=== PATIENT | male | born 1960 | race African-American/Black ===

== ENCOUNTER 2016-06-30 10:24 | Inpatient (IN) | payer OTHER ==
[2016-06-30 10:53] VITALS: BMI 33.5
--- NOTE | 2016-06-30 15:12 | HP ---
CIWA Score - CIWA Score Nausea/Vomitin-No Nausea/No Vomiting Muscle Tremors: 4-Moderate,w/Arms Extend Anxiety: 4-Mod. Anxious/Guarded Agitation: 4-Moderately Restless Paroxysmal Sweats: 1-Minimal Palms Moist Orientation: 0-Oriented Tacttile Disturbances: 3-Moderate Itch/Numb/Burn Auditory Disturbances: 0-None Visual Disturbances: 0-None Headache: 0-None Present CIWA-Ar Total Score: 16 Admission ROS S - HPI Chief Complaint: DETOX TX FOR ALCOHOL DEPENDENCE. Allergies/Adverse Reactions: Allergies Allergy/AdvReac Type Severity Reaction Status Date / Time No Known Allergies Allergy Verified 06/30/16 13:11 History of Present Illness: 55 Y/O AA/MALE WITH A HX OF ALCOHOL AND COCAINE DEPENDENCE SEEKING DETOX TX. Exam Limitations: No Limitations - Ebola screening Have you traveled outside of the country in the last 21 days: No Have you had contact with anyone from an Ebola affected area: No Have you been sick,other than usual withdrawal symptoms: No Do you have a fever: No - Review of Systems Constitutional: Chills, Loss of Appetite, Night Sweats, Changes in sleep EENT: reports: Blurred Vision, Tearing, Nose Congestion, Dental Problems ( MISSING TEETH-UPPER.) Respiratory: reports: No Symptoms reported Cardiac: reports: Lightheadedness, Palpitations GI: reports: Constipated, Poor Fluid Intake : reports: No Symptoms Reported Musculoskeletal: reports: Back Pain, Joint Pain, Muscle Pain Integumentary: reports: No Symptoms Reported Neuro: reports: Tremors, Unsteady Gait, Dizziness Endocrine: reports: No Symptoms Reported Hematology: reports: No Symptoms Reported Psychiatric: reports: Orientated x3, Anxious, Depressed Other Systems: Reviewed and Negative Patient History - Patient Medical History Hx Anemia: No Hx Asthma: No Hx Chronic Obstructive Pulmonary Disease (COPD): No Hx Cancer: No Hx Cardiac Disorders: No Hx Congestive Heart Failure: No Hx Hypertension: No Hx Hypercholesterolemia: No Hx Pacemaker: No HX Cerebrovascular Accident: No Hx Seizures: No Hx Dementia: No Hx Diabetes: No Hx Gastrointestinal Disorders: No Hx Liver Disease: No Hx Genitourinary Disorders: No Hx Sexually Transmitted Disorders: No Hx Renal Disease (ESRD): No Hx Thyroid Disease: No Hx Human Immunodeficiency Virus (HIV): No ( NEGATIVE HX) Hx Hepatitis C: No (Last Tested: 06/2015: NEGATIVE) Hx Depression: Yes (NO MEDS) Hx Suicide Attempt: No Hx Bipolar Disorder: No Hx Schizophrenia: No - Patient Surgical History Past Surgical History: No Hx Neurologic Surgery: No Hx Cataract Extraction: No Hx Cardiac Surgery: No Hx Lung Surgery: No Hx Breast Surgery: No Hx Breast Biopsy: No Hx Abdominal Surgery: No Hx Appendectomy: No Hx Cholecystectomy: No Hx Genitourinary Surgery: No Hx Orthopedic Surgery: No Anesthesia Reaction: No - PPD History Previous Implant?: Yes Documented Results: Negative w/proof Implanted On Prior [facility] Admission?: Yes Date: 10/23/15 Results: 0 MM PPD to be Administered?: No - Reproductive History Patient is a Female of Child Bearing Age (11 -55 yrs old): No (MALE) - Smoking Cessation Smoking history: Current every day smoker Have you smoked in the past 12 months: Yes Aproximately how many cigarettes per day: 5 Cigars Per Day: 0 Hx Chewing Tobacco Use: No Initiated information on smoking cessation: Yes 'Breaking Loose' booklet given: 06/30/16 - Substance & Tx. History Hx Alcohol Use: Yes (VODKA/BEER) Hx Substance Use: Yes (COCAINE) Substance Use Type: Alcohol, Cocaine - Substances Abused Alcohol Route: Oral Frequency: Daily Amount used: 1 PINT VODKA Age of first use: 26 Date of Last Use: 06/30/16 Cocaine Route: Inhalation Frequency: Daily Amount used: $30 Age of first use: 31 Date of Last Use: 06/29/16 Family Disease History - Family Disease History Family History: Denies Admission Physical Exam [facility] - Vital Signs Vital Signs: Vital Signs - 24 hr 06/30/16 10:41 Temperature 96.1 F L Pulse Rate 102 H Respiratory 20 Rate Blood Pressure 122/70 - Physical General Appearance: Yes: Moderate Distress, Alcohol on Breath, Tremorous, Irritable, Anxious HEENTM: Yes: EOMI, Normocephalic, DOROTHY, Pharynx Normal Respiratory: Yes: Chest Non-Tender, Lungs Clear, Normal Breath Sounds Neck: Yes: Supple, Trachea in good position Breast: Yes: Breast Exam Deferred Cardiology: Yes: Regular Rhythm, Regular Rate, S1, S2 Abdominal: Yes: Normal Bowel Sounds, Non Tender, Soft, Protuberent Genitourinary: Yes: Other (N/C) Musculoskeletal: Yes: full range of Motion, Gait Steady Extremities: Yes: Normal Range of Motion, Non-Tender 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 NML intact, Fully Oriented, Alert, Motor Strength 5/5 Integumentary: Yes: Dry, Warm Lymphatic: Yes: Within Normal Limits - Diagnostic (1) Alcohol dependence with uncomplicated withdrawal Current Visit: Yes Status: Acute (2) Cocaine dependence Current Visit: Yes Status: Acute Qualifiers: Substance use status: uncomplicated Qualified Code(s): F14.20 - Cocaine dependence, uncomplicated (3) Nicotine dependence Current Visit: Yes Status: Acute Qualifiers: Nicotine product type: cigarettes Substance use status: in withdrawal Qualified Code(s): F17.213 - Nicotine dependence, cigarettes, with withdrawal Cleared for Admission [facility] - Detox or Rehab [facility] Level of Care: Medically Managed Detox Regimen/Protocol: Librium [facility] Breath Alcohol Content Breath Alcohol Content: 0.021 Urine Drug Screen - Results Drug Screen Negative: No Urine Drug Screen Results: RUSSELL-Cocaine, BZO-Benzodiazepines
[2016-06-30] MEDS ORDERED: MAGNESIUM CITRATE 300 ML BOTTLE PO PRN (15:17)
[2016-06-30] MEDS ORDERED: IBUPROFEN 400 MG TABLET (FP) PO PRN (15:17)
[2016-06-30] MEDS ORDERED: guaiFENesin/D-METHORPHAN HB 10 ML UNIT-DOSE CUPS PO PRN (15:17)
[2016-06-30] MEDS ORDERED: ACETAMINOPHEN 325 MG TABLET (FP) PO PRN (15:17)
[2016-06-30] MEDS ORDERED: MAG HYDROX/AL HYDROX/SIMETH 30 ML UNIT-DOSE CUP PO PRN (15:17)
[2016-06-30] MEDS ORDERED: NICOTINE POLACRILEX 2 MG GUM BUC PRN (15:17)
[2016-06-30] MEDS ORDERED: MAGNESIUM HYDROX 2400MG/30ML ORAL SUSPENSION 30 ML CUP PO PRN (15:17)
[2016-06-30] MEDS ORDERED: hydrOXYzine PAMOATE 25 MG CAPSULE (FP) PO PRN (15:17)
[2016-06-30] MEDS ORDERED: P-EPHED 60MG/TRIPROLIDI 2.5MG TABLET PO PRN (15:17)
[2016-06-30] MEDS ORDERED: diphenhydrAMINE HCL 50 MG CAPSULE PO PRN (15:17)
[2016-06-30] MEDS ORDERED: MENTHOL/PHENOL 1 EACH UD MM PRN (15:17)
[2016-06-30] MEDS ORDERED: chlordiazePOXIDE HCL 25 MG CAPSULE PO PRN (15:17)
[2016-06-30] MEDS ORDERED: LOPERAMIDE HCL 2 MG CAPSULE PO PRN (15:17)
[2016-06-30] MEDS ORDERED: chlordiazePOXIDE HCL 25 MG CAPSULE PO ONE (15:24)
[2016-06-30] MEDS: chlordiazePOXIDE HCL 25 MG CAPSULE PO SCH ×2 (17:19→22:11)
[2016-06-30 19:40] LABS: URINE APPEARANCE CLEAR; URINE BILIRUBIN NEGATIVE (NEGATIVE); URINE BLOOD NEGATIVE (NEGATIVE); URINE COLOR YELLOW; URINE GLUCOSE (UA) NEGATIVE (NEGATIVE); URINE KETONE NEGATIVE (NEGATIVE); URINE LEUK ESTERASE NEGATIVE (NEGATIVE); URINE NITRITE NEGATIVE (NEGATIVE); URINE UROBILINOGEN NEGATIVE E.U./dl (0.2-1.0)
[2016-06-30 19:41] LABS: URINE PROTEIN 1+ (NEGATIVE)
[2016-06-30 19:44] LABS: CALCIUM OXALATE CRYSTALS FEW /hpf (NONE SEEN); URINE HYALINE CAST 5 /lpf; URINE MUCUS RARE; URINE RBC 17 /hpf (0-3); URINE SPERM RARE; URINE WBC 3 /hpf (3-5)
[2016-06-30] MEDS: NICOTINE 14 MG/24 HOURS TOPICAL PATCH TD SCH (20:17)
[2016-06-30] MEDS: THIAMINE HCL 100 MG TABLET (FP) PO SCH (22:11)
[2016-07-01] MEDS: chlordiazePOXIDE HCL 25 MG CAPSULE PO SCH ×4 (05:50→22:39)
[2016-07-01 09:52] LABS: MCH 27.6 pg (25.7-33.7); MCHC 32.9 g/dl (32.0-35.9); MEAN CELL VOLUME 84.1 fl (80-96); MEAN PLT VOLUME 8.8 fl (7.5-11.1); PLATELET COUNT 266 K/MM3 (134-434); RDW 14.2 % (11.9-15.9); WHITE BLOOD COUNT 8.3 K/mm3 (4.0-10.0)
[2016-07-01 09:58] LABS: ALBUMIN 4.1 g/dl (3.4-5.0); BILIRUBIN,TOTAL 0.3 mg/dL (0.2-1.0); CALCIUM 8.4 mg/dL (8.5-10.1); CREATININE 1.7 mg/dL (0.7-1.3); TOT PROT 6.9 g/dl (6.4-8.2)
--- NOTE | 2016-07-01 10:08 | EKG ---
Test Reason : Blood Pressure : / mmHG Vent. Rate : 086 BPM Atrial Rate : 086 BPM P-R Int : 148 ms QRS Dur : 076 ms QT Int : 362 ms P-R-T Axes : 074 043 078 degrees QTc Int : 433 ms NORMAL SINUS RHYTHM POSSIBLE LEFT ATRIAL ENLARGEMENT BORDERLINE ECG NO PREVIOUS ECGS AVAILABLE Confirmed by IVETTE PIRES MD ([id number]) on 07/01/2016 10:08:31 AM Referred By: Confirmed By:IVETTE PIRES MD
[2016-07-01] MEDS: NICOTINE 14 MG/24 HOURS TOPICAL PATCH TD SCH (11:01)
[2016-07-01] MEDS: PRENATAL VITAMINS W/ FOLIC ACID TABLET (FP) PO SCH (11:02)
--- NOTE | 2016-07-01 12:06 | PN ---
[facility] CIWA - CIWA Score Nausea/Vomitin Muscle Tremors: 2 Anxiety: 2 Agitation: 2 Paroxysmal Sweats: 3 Orientation: 0-Oriented Tacttile Disturbances: 2-Mild Itch/Numbness/Burn Auditory Disturbances: 0-None Visual Disturbances: 0-None Headache: 0-None Present CIWA-Ar Total Score: 13 S Progress Note (SOAP) Subjective: feeling tired , sweats, cough , fever Objective: 07/01/16 12:03 Vital Signs Temperature 100.9 F H 07/01/16 09:51 Pulse Rate 103 H 07/01/16 09:51 Respiratory Rate 20 07/01/16 09:51 Blood Pressure 128/64 07/01/16 09:51 O2 Sat by Pulse Oximetry (%) Laboratory Tests 06/30/16 07/01/16 07/01/16 15:00 06:00 06:00 WBC 8.3 RBC 4.55 Hgb 12.6 Hct 38.3 MCV 84.1 MCHC 32.9 RDW 14.2 Plt Count 266 MPV 8.8 Sodium 139 Potassium 4.0 Chloride 105 Carbon Dioxide 24 Anion Gap 10 BUN 15 Creatinine 1.7 H D Creat Clearance w eGFR 42.21 Random Glucose 68 L Calcium 8.4 L Total Bilirubin 0.3 D AST 35 D ALT 35 D Alkaline Phosphatase 63 D Total Protein 6.9 Albumin 4.1 D Urine Color Yellow Urine Appearance Clear Urine pH 5.0 Ur Specific [place] 1.016 Urine Protein 1+ H Urine Glucose (UA) Negative Urine Ketones Negative Urine Blood Negative Urine Nitrite Negative Urine Bilirubin Negative Urine Urobilinogen Negative Ur Leukocyte Esterase Negative Urine RBC 17 Urine WBC 3 Ur Epithelial Cells Rare Calcium Oxalate Crystal Few Hyaline Casts 5 Urine Mucus Rare RPR Titer 07/01/16 06:00 WBC RBC Hgb Hct MCV MCHC RDW Plt Count MPV Sodium Potassium Chloride Carbon Dioxide Anion Gap BUN Creatinine Creat Clearance w eGFR Random Glucose Calcium Total Bilirubin AST ALT Alkaline Phosphatase Total Protein Albumin Urine Color Urine Appearance Urine pH Ur Specific [place] Urine Protein Urine Glucose (UA) Urine Ketones Urine Blood Urine Nitrite Urine Bilirubin Urine Urobilinogen Ur Leukocyte Esterase Urine RBC Urine WBC Ur Epithelial Cells Calcium Oxalate Crystal Hyaline Casts Urine Mucus RPR Titer Nonreactive pt aox3 in nad lungs decreased breath sounds bases [place] poor ispiratory efforts cxr neg pulse ox ra 97% on RA 07/01/16 13:20 Assessment: 07/01/16 12:05 withdrawal sx's cough, fever bronchitis renal failure 07/01/16 12:06 07/01/16 13:18 Plan: cont. detox cxr -done robitussin prn zpack monitor temps tinactin bid
[2016-07-01] MEDS ORDERED: AZITHROMYCIN 250 MG TABLET (FP) PO ONE (14:28)
--- NOTE | 2016-07-01 15:05 | CONSULT ---
[facility] Psychiatric Consult - Data Date of interview: 07/01/16 Admission source: [facility] Identifying data: Readmission to [facility] for this 55 y/o AA male seeking detox treatment for alcohol and cocaine dependence.Patient is single,a father of two,homeless,unemployed and deprived of any source of income. Substance Abuse History: - Smoking Cessation. Smoking history: Current every day smoker. Have you smoked in the past 12 months: Yes. Aproximately how many cigarettes per day: 5. Cigars Per Day: 0. Hx Chewing Tobacco Use: No. Initiated information on smoking cessation: Yes. 'Breaking Loose' booklet given : 06/30/16. - Substance & Tx. History. Hx Alcohol Use: Yes (VODKA/BEER). Hx Substance Use: Yes (COCAINE). Substance Use Type: Alcohol, Cocaine. - Substances Abused. Alcohol. Route: Oral. Frequency: Daily. Amount used: 1 PINT VODKA. Age of first use: 26. Date of Last Use: 06/30/16. Confirmed by patient. Cocaine. Route: Inhalation. Frequency: Daily. Amount used: $30. Age of first use: 31. Date of Last Use: 06/29/16. Confirmed by patient. Medical History: Patient reports good general health. Psychiatric History: No reported history of psychiatric hospitalizations.Diagnosed with MDD.Prescribed zoloft 50 mg po daily (confirmed by pharmacy claims of 06/19/16).Mr Torres indicates that he has no contact with any OPD care setting in the community/mental health provider.He endorses chronic non-adherence to medications.Mr Torres admits to past episodes of suicidal ideation without progression to attempts. Physical/Sexual Abuse/Trauma History: Patient denies. Additional Comment: Urine Drug Screen Results: RUSSELL-Cocaine, BZO- Benzodiazepines.Noted. Mental Status Exam - Mental Status Exam Alert and Oriented to: Time, Place, Person Cognitive Function: Grossly Intact Patient Appearance: Well Groomed Mood: Irritable Affect: Mood Congruent Patient Behavior: Sedated (moderately), Fatigued, Cooperative (marginally) Speech Pattern: Delayed, Slurred Voice Loudness: Moderately Soft/Quiet Thought Process: Goal Oriented Thought Disorder: Not Present Hallucinations: Denies Suicidal Ideation: Denies Homicidal Ideation: Denies Insight/Judgement: Poor Sleep: Fair Appetite: Good Muscle strength/Tone: Normal Gait/Station: Normal Psychiatric Findings - Problem List ([place] 1, 2,3) (1) Alcohol dependence with uncomplicated withdrawal Current Visit: Yes Status: Acute (2) Cocaine dependence Current Visit: Yes Status: Acute Qualifiers: Substance use status: uncomplicated Qualified Code(s): F14.20 - Cocaine dependence, uncomplicated (3) Nicotine dependence Current Visit: Yes Status: Acute Qualifiers: Nicotine product type: cigarettes Substance use status: in withdrawal Qualified Code(s): F17.213 - Nicotine dependence, cigarettes, with withdrawal (4) Substance induced mood disorder Current Visit: Yes Status: Acute - Initial Treatment Plan Initial Treatment Plan: Psychoeducation.Detoxification.Zoloft 50 mg po daily.Side effects/benefits explained to patient.He agrres with this plan of care.Observation.
[2016-07-01] MEDS: TOLNAFTATE 1% CREAM 15 GM TUBE TP SCH (22:38)
[2016-07-01] MEDS: THIAMINE HCL 100 MG TABLET (FP) PO SCH (22:39)
[2016-07-02] MEDS: chlordiazePOXIDE HCL 25 MG CAPSULE PO SCH ×2 (06:10→11:34)
[2016-07-02 10:16] LABS: CALCIUM 8.2 mg/dL (8.5-10.1); CREATININE 1.3 mg/dL (0.7-1.3)
--- NOTE | 2016-07-02 11:03 | PN ---
S CIWA - CIWA Score Nausea/Vomitin Muscle Tremors: 3 Anxiety: 3 Agitation: 3 Paroxysmal Sweats: 1-Minimal Palms Moist Orientation: 0-Oriented Tacttile Disturbances: 1-Very Mild Itch/Numbness Auditory Disturbances: 1-Very Mild Visual Disturbances: 1-Very Mild Sensitivity Headache: 2-Mild CIWA-Ar Total Score: 18 S Progress Note (SOAP) Subjective: ALERT,IRRITABLE,ANXIOUS,INTERRUPTED SLEEP,TREMOR,PAIN IN BOTH FEET WITH SWELLING Objective: 07/02/16 11:03 Vital Signs Temperature 98.8 F 07/02/16 10:27 Pulse Rate 92 H 07/02/16 10:27 Respiratory Rate 16 07/02/16 10:27 Blood Pressure 126/85 07/02/16 10:27 O2 Sat by Pulse Oximetry (%) 07/02/16 11:04 EKG NSR NO CHEST PAIN,NO SOB,NO DIZZINESS Laboratory Last Values WBC 8.3 K/mm3 (4.0-10.0) 07/01/16 06:00 RBC 4.55 M/mm3 (4.00-5.60) 07/01/16 06:00 Hgb 12.6 GM/dL (11.7-16.9) 07/01/16 06:00 Hct 38.3 % (35.4-49) 07/01/16 06:00 MCV 84.1 fl (80-96) 07/01/16 06:00 MCHC 32.9 g/dl (32.0-35.9) 07/01/16 06:00 RDW 14.2 % (11.9-15.9) 07/01/16 06:00 Plt Count 266 K/MM3 (134-434) 07/01/16 06:00 MPV 8.8 fl (7.5-11.1) 07/01/16 06:00 Sodium 142 mmol/L (136-145) 07/02/16 07:00 Potassium 4.1 mmol/L (3.5-5.1) 07/02/16 07:00 Chloride 108 mmol/L (98-107) H 07/02/16 07:00 Carbon Dioxide 25 mmol/L (21-32) 07/02/16 07:00 Anion Gap 9 (8-16) 07/02/16 07:00 BUN 13 mg/dL (7-18) 07/02/16 07:00 Creatinine 1.3 mg/dL (0.7-1.3) D 07/02/16 07:00 Creat Clearance w eGFR 42.21 (>60) 07/01/16 06:00 Random Glucose 77 mg/dL (74-106) 07/02/16 07:00 Calcium 8.2 mg/dL (8.5-10.1) L 07/02/16 07:00 Total Bilirubin 0.3 mg/dL (0.2-1.0) D 07/01/16 06:00 AST 35 U/L (15-37) D 07/01/16 06:00 ALT 35 U/L (12-78) D 07/01/16 06:00 Alkaline Phosphatase 63 U/L (45-117) D 07/01/16 06:00 Total Protein 6.9 g/dl (6.4-8.2) 07/01/16 06:00 Albumin 4.1 g/dl (3.4-5.0) D 07/01/16 06:00 Urine Color Yellow 06/30/16 15:00 Urine Appearance Clear 06/30/16 15:00 Urine pH 5.0 (5.0-8.0) 06/30/16 15:00 Ur Specific [place] 1.016 (1.001-1.035) 06/30/16 15:00 Urine Protein 1+ (NEGATIVE) H 06/30/16 15:00 Urine Glucose (UA) Negative (NEGATIVE) 06/30/16 15:00 Urine Ketones Negative (NEGATIVE) 06/30/16 15:00 Urine Blood Negative (NEGATIVE) 06/30/16 15:00 Urine Nitrite Negative (NEGATIVE) 06/30/16 15:00 Urine Bilirubin Negative (NEGATIVE) 06/30/16 15:00 Urine Urobilinogen Negative E.U./dl (0.2-1.0) 06/30/16 15:00 Ur Leukocyte Esterase Negative (NEGATIVE) 06/30/16 15:00 Urine RBC 17 /hpf (0-3) 06/30/16 15:00 Urine WBC 3 /hpf (3-5) 06/30/16 15:00 Ur Epithelial Cells Rare /hpf (FEW) 06/30/16 15:00 Calcium Oxalate Crystal Few /hpf (NONE SEEN) 06/30/16 15:00 Hyaline Casts 5 /lpf 06/30/16 15:00 Urine Mucus Rare 06/30/16 15:00 RPR Titer Nonreactive (NONREACTIVE) 07/01/16 06:00 07/02/16 11:06 Assessment: 07/02/16 11:06 WITHDRAWAL SYMPTOM 07/02/16 11:06 Plan: CONTINUE DETOX,LASIX 40 MGS PO DAILY FOR 3 DAYS,XRAY BOTH FEET R/O ARTHRITIS
[2016-07-02] MEDS: PRENATAL VITAMINS W/ FOLIC ACID TABLET (FP) PO SCH (11:18)
[2016-07-02] MEDS: SERTRALINE HCL 50 MG TABLET (FP) PO SCH (11:18)
[2016-07-02] MEDS: AZITHROMYCIN 250 MG TABLET (FP) PO SCH (11:18)
[2016-07-02] MEDS: TOLNAFTATE 1% CREAM 15 GM TUBE TP SCH ×2 (11:18→23:00)
[2016-07-02] MEDS: FUROSEMIDE 40 MG TABLET (FP) PO SCH (11:19)
[2016-07-02] MEDS: NICOTINE 14 MG/24 HOURS TOPICAL PATCH TD SCH (11:20)
[2016-07-02] MEDS: chlordiazePOXIDE 5 MG CAPSULE PO SCH ×2 (17:40→23:00)
[2016-07-02] MEDS: THIAMINE HCL 100 MG TABLET (FP) PO SCH (23:00)
[2016-07-03] MEDS: chlordiazePOXIDE 5 MG CAPSULE PO SCH ×2 (06:13→10:54)
[2016-07-03] MEDS: SERTRALINE HCL 50 MG TABLET (FP) PO SCH (10:54)
[2016-07-03] MEDS: FUROSEMIDE 40 MG TABLET (FP) PO SCH (10:54)
[2016-07-03] MEDS: NICOTINE 14 MG/24 HOURS TOPICAL PATCH TD SCH (10:54)
[2016-07-03] MEDS: PRENATAL VITAMINS W/ FOLIC ACID TABLET (FP) PO SCH (10:54)
[2016-07-03] MEDS: AZITHROMYCIN 250 MG TABLET (FP) PO SCH (10:54)
[2016-07-03] MEDS: TOLNAFTATE 1% CREAM 15 GM TUBE TP SCH ×2 (10:54→23:48)
--- NOTE | 2016-07-03 11:13 | PN ---
S Progress Note (SOAP) Subjective: ALERT,IRRITABLE,INTERRUPTED SLEEP,SWELLING AND PAIN IN BOTH FEET IS LESS Objective: 07/03/16 11:11 Vital Signs Temperature 98.2 F 07/03/16 09:53 Pulse Rate 85 07/03/16 09:53 Respiratory Rate 20 07/03/16 09:53 Blood Pressure 126/78 07/03/16 09:53 O2 Sat by Pulse Oximetry (%) Assessment: 07/03/16 11:11 WITHDRAWAL SYMPTOM XRAY BOTH FEET RESULT NOTED Plan: WITHDRAWAL SYMPTOM,EDEMA BOTH FEET IS LESS,DISCHARGE IN AM
[2016-07-03] MEDS: chlordiazePOXIDE HCL 10 MG CAPSULE PO SCH ×2 (17:36→23:48)
[2016-07-03] MEDS: THIAMINE HCL 100 MG TABLET (FP) PO SCH (23:48)
[2016-07-04 06:51] VITALS: BP 122/79; PULSE 82; TEMP 97.7
[2016-07-04] MEDS: chlordiazePOXIDE HCL 10 MG CAPSULE PO SCH (07:00)
--- NOTE | 2016-07-04 15:12 | DS ---
[facility] Detox Discharge Summary Admission Date: 06/30/16 Discharge Date: 07/04/16 - History Present History: Alcohol Dependence, Cocaine Dependence Additional Comments: ADVISED PATIENT TO FOLLOW-UP WITH [facility] / REHAB MEDICAL PROVIDER AFTER DISCHARGE FROM DETOX FOR GENERAL MEDICAL ASSESSMENT AND FOR ABNORMAL ADMISSION LAB VALUES. Pertinent Past History: Depression. - Physical Exam Results Vital Signs: Vital Signs Temperature 97.7 F 07/04/16 06:00 Pulse Rate 82 07/04/16 06:00 Respiratory Rate 18 07/04/16 06:00 Blood Pressure 122/79 07/04/16 06:00 O2 Sat by Pulse Oximetry (%) Pertinent Admission Physical Exam Findings: WITHDRAWAL SYMPTOMS. Vital Signs Temperature 97.7 F 07/04/16 06:00 Pulse Rate 82 07/04/16 06:00 Respiratory Rate 18 07/04/16 06:00 Blood Pressure 122/79 07/04/16 06:00 O2 Sat by Pulse Oximetry (%) Laboratory Last Values WBC 8.3 K/mm3 (4.0-10.0) 07/01/16 06:00 RBC 4.55 M/mm3 (4.00-5.60) 07/01/16 06:00 Hgb 12.6 GM/dL (11.7-16.9) 07/01/16 06:00 Hct 38.3 % (35.4-49) 07/01/16 06:00 MCV 84.1 fl (80-96) 07/01/16 06:00 MCHC 32.9 g/dl (32.0-35.9) 07/01/16 06:00 RDW 14.2 % (11.9-15.9) 07/01/16 06:00 Plt Count 266 K/MM3 (134-434) 07/01/16 06:00 MPV 8.8 fl (7.5-11.1) 07/01/16 06:00 Sodium 142 mmol/L (136-145) 07/02/16 07:00 Potassium 4.1 mmol/L (3.5-5.1) 07/02/16 07:00 Chloride 108 mmol/L (98-107) H 07/02/16 07:00 Carbon Dioxide 25 mmol/L (21-32) 07/02/16 07:00 Anion Gap 9 (8-16) 07/02/16 07:00 BUN 13 mg/dL (7-18) 07/02/16 07:00 Creatinine 1.3 mg/dL (0.7-1.3) D 07/02/16 07:00 Creat Clearance w eGFR 42.21 (>60) 07/01/16 06:00 Random Glucose 77 mg/dL (74-106) 07/02/16 07:00 Calcium 8.2 mg/dL (8.5-10.1) L 07/02/16 07:00 Total Bilirubin 0.3 mg/dL (0.2-1.0) D 07/01/16 06:00 AST 35 U/L (15-37) D 07/01/16 06:00 ALT 35 U/L (12-78) D 07/01/16 06:00 Alkaline Phosphatase 63 U/L (45-117) D 07/01/16 06:00 Total Protein 6.9 g/dl (6.4-8.2) 07/01/16 06:00 Albumin 4.1 g/dl (3.4-5.0) D 07/01/16 06:00 Urine Color Yellow 06/30/16 15:00 Urine Appearance Clear 06/30/16 15:00 Urine pH 5.0 (5.0-8.0) 06/30/16 15:00 Ur Specific [place] 1.016 (1.001-1.035) 06/30/16 15:00 Urine Protein 1+ (NEGATIVE) H 06/30/16 15:00 Urine Glucose (UA) Negative (NEGATIVE) 06/30/16 15:00 Urine Ketones Negative (NEGATIVE) 06/30/16 15:00 Urine Blood Negative (NEGATIVE) 06/30/16 15:00 Urine Nitrite Negative (NEGATIVE) 06/30/16 15:00 Urine Bilirubin Negative (NEGATIVE) 06/30/16 15:00 Urine Urobilinogen Negative E.U./dl (0.2-1.0) 06/30/16 15:00 Ur Leukocyte Esterase Negative (NEGATIVE) 06/30/16 15:00 Urine RBC 17 /hpf (0-3) 06/30/16 15:00 Urine WBC 3 /hpf (3-5) 06/30/16 15:00 Ur Epithelial Cells Rare /hpf (FEW) 06/30/16 15:00 Calcium Oxalate Crystal Few /hpf (NONE SEEN) 06/30/16 15:00 Hyaline Casts 5 /lpf 06/30/16 15:00 Urine Mucus Rare 06/30/16 15:00 RPR Titer Nonreactive (NONREACTIVE) 07/01/16 06:00 LABS NOTED. - Treatment Hospital Course: Detox Protocol Followed, Detoxed Safely, Responded well, Discharged Condition Good Patient has Accepted a Rehab Referral to: NO - OUTPATIENT 12-STEP AA / NA PROGRAMS RECOMMENDED TO PATIENT. - Medication Discharge Medications: Ambulatory Orders Sertraline HCl [Zoloft -] 50 mg PO DAILY #30 tablet 07/01/16 - AMA Did Patient Leave Against Medical Advice: No
== END 2016-07-04 09:35 | disposition home or self-care (01) | DRG 774 ==
LOC: YASAS 10:24 → Y6N 14:08
PROVIDERS: ADMIT Internal Medicine Addiction Medicine; ATTEND Internal Medicine Addiction Medicine
PROC: HZ2ZZZZ Detoxification Services for Substance Abuse Treatment (ICD-10-PCS; principal; 2016-07-04)
DX: F10.230 Alcohol dependence with withdrawal, uncomplicated (principal); F14.20 Cocaine dependence, uncomplicated; F17.213 Nicotine dependence, cigarettes, with withdrawal; F19.24 Other psychoactive substance dependence with psychoactive substance-induced mood disorder
CPT/HCPCS: 36415; 71020-TC; 73630-TC-LT; 73630-TC-RT; 80048; 80053; 81003; 81015; 85027; 86593; 93005; 93010